=== PATIENT | female | born 1995 | race Caucasian/White ===

== ENCOUNTER 2021-06-29 04:05 | Day surgery (SDC) | payer OTHER ==
[2021-06-27 16:26] VITALS: BMI 27.3
[2021-06-29] MEDS ORDERED: LIDOCAINE HCL 1%, 10 MG/ML (20ML VIAL) NR ONE ×4 (08:43→09:13)
[2021-06-29] MEDS ORDERED: BUPIVACAINE HCL/PF 0.5% (5MG/ML) 10 ML VIAL IJ ONE ×4 (08:44→09:13)
[2021-06-29] MEDS ORDERED: BENZOIN/ALOE VERA/STORAX/TOLU 58 ML BOTTLE ONE (09:37)
[2021-06-29 10:28] VITALS: BP 115/72; PULSE 71; TEMP 98.8
== END 2021-06-29 10:15 | disposition home or self-care (01) ==
LOC: JASU-SURG 04:05
PROVIDERS: ATTEND Surgery
PROC: 0JB60ZZ Excision of Chest Subcutaneous Tissue and Fascia, Open Approach (ICD-10-PCS; principal; 2021-06-29 09:00)
DX: R22.2 Localized swelling, mass and lump, trunk (principal)
CPT/HCPCS: 81025; 88305-TC